=== PATIENT | female | born 1960 | race Caucasian/White ===

== ENCOUNTER 2020-04-29 12:03 | Inpatient (IN) | payer OTHER, SELFPAY ==
[~2020-04-29] VITALS: Ht 154.9 cm; Wt 74.1 kg
--- NOTE | 2020-04-29 12:19 | NUR ---
DR NUNEZ AT BEDSIDE FOR MD FARR.
--- NOTE | 2020-04-29 12:19 | NUR ---
RT AT BEDSIDE FOR BLOOD GAS.
[2020-04-29 12:44] LABS: BASOPHIL % 0.3 % (0-2); PLATELET COUNT 297 x10^3mcL (130-400)
--- NOTE | 2020-04-29 12:49 | NUR ---
PT ERICK FROM HOME, C/O HEADACHE, SOB WITH MINIMAL EXERTION, DRY COUGH, MALAISE, FATIGUED, DIZZINESS, LOSS OF APPETITE, PT STS SHE TOOK TWO TYLENOLS AT 0900 AND HAD RELIEF, PT STS SHE HAS BEEN HAVING THESE SYMPTOMS SINCE APRIL 17, 2020, WENT TO [facility] ON SATURDAY APRIL 25, 2020 WAS TESTED FOR COVID 19 AND WAS TOLD SHE WAS POSITIVE ON APRIL 25, 2020, STS SHE WAS DIAGNOSED WITH PNEUMONIA AND WAS RELEASED ON MONDAY APRIL 27, 2020, SHE WAS SENT HOME WITH OXYGEN CONCENTRATOR WITH AN ORDER FOR 2 L/MIN VIA NC, PT STS SHE HAD OXYGEN ON AT 2 L/MIN VIA NC AND STILL FELT LIKE SHE COULD NOT BREATHE, PT PLACED IN BED 15, AAOX4, SOB NOTED, PLACED ON 4 L/MIN VIA NC, CURRENT 02 AT 96%, RR 30, REPOSITIONED FOR COMFORT, RT AT BEDSIDE, PLACED IN GOWN, IV ACCESS OBTAINED, SAFETY PRECAUTIONS IN PLACE, CALL LIGHT WITHIN REACH, WILL CONTINUE TO MONITOR.
[2020-04-29] MEDS ORDERED: ELIQUIS2.5 MG (13:15)
[2020-04-29] MEDS ORDERED: PROINH (13:15)
[2020-04-29 13:17] LABS: CALCIUM 8.4 mg/dL (8.5-10.1); CARBON DIOXIDE 32.4 mmol/L (21-32); CHLORIDE SERUM 100 mmol/L (98-107); CREATININE SERUM 0.7 mg/dL (0.6-1.0); GFR1 > 60 mL/min; GLUCOSE SERUM 129 mg/dL (74-106); POTASSIUM SERUM 4.2 mmol/L (3.5-5.1); SODIUM SERUM 135 mmol/L (136-145)
[2020-04-29 13:22] LABS: ALKALINE PHOSPHATASE 76 U/L (46-116); ALT/SGPT 84 U/L (14-59); AST/SGOT 41 U/L (15-37); BILIRUBIN TOTAL 0.34 mg/dL (0.20-1.00); LACTIC DEHYDROGENASE (LDH) 337 U/L (100-190); TOTAL PROTEIN, SERUM 7.7 g/dL (6.4-8.2)
[2020-04-29 13:33] LABS: ALBUMIN 2.8 g/dL (3.4-5.0)
[2020-04-29 13:48] LABS: C REACTIVE PROTEIN 23.3 mg/dL (<=0.9)
--- NOTE | 2020-04-29 14:54 | NUR ---
INITIATED ROCEPHIN @ 100ML/HR. PLEASE SEE EMAR.
[2020-04-29 14:55] VITALS: BP 160/79
--- NOTE | 2020-04-29 15:09 | NUR ---
CALLED TO GIVE REPORT TO BRANDEN CORMIER, WILL CALL BACK
[2020-04-29 15:30] LABS: microscopic required? YES; urine erythrocyte NEGATIVE (NEGATIVE)
--- NOTE | 2020-04-29 15:56 | NUR ---
SPOKE WITH RUDI DAUGHTER OF PT RE POC, PER PT OK TO GIVE STATUS ON POC
--- NOTE | 2020-04-29 16:00 | NUR ---
DR HOLDER AT BEDSIDE WITH MSE
[2020-04-29 16:22] VITALS: BP 194/95
[2020-04-29 16:33] VITALS: Ht 154.9 cm; Wt 74.1 kg
--- NOTE | 2020-04-29 16:34 | NUR ---
RECEIVED PT FROM ED VIA [place], CAME IN DUE TO WORSENING SOB, WAS DIAGNOSED W/ COVID ON 04/25/20. PT STATED THAT SHE WAS RECENTLY DISCHARGED FROM [facility] W/ 2LPM/NC OXYGEN. AAOX4. DENIES HEADACHE/DIZZINESS. ABLE TO FOLLOW COMMANDS. SOB NOTED, W/ DRY COUGH, LUNG SOUNDS DIMINISHED ON AUSCULTATION. O2 SAT=93% ON 5LPM/NC. DENIES CHEST PAIN/PRESSURE, SR ON THE MONITOR. DENIES ABDOMINAL DISCOMFORT. VOIDS. C/O GENERALIZED WEAKNESS AND FATIGUE. ABLE TO MOVE ALL EXTREMITIES. IV SITE PATENT AND INTACT. RECEIVED PT FROM ED W/ ZITHROMAX ONGOING. SIDE RAILS UPX2. CALL LIGHT ON REACH. HOB ELEVATED AT 45 DEG. UE=058/94. ENDORSED TO PRIMARY NURSE BRANDEN FOR CONTINUITY OF CARE
--- NOTE | 2020-04-29 18:35 | NUR ---
NO ACUTE CHANGES AT THIS TIME, NO ACUTE RESP DISTRESS OR SOB NOTED/ CURRENT SAT 97%. CURRENT BP AFTER BP MED 165/70, HR 77 DENIES ANY CP OR PRESSURE. TOLERATED 100% DINNER. CALL LIGHT IN REACH. BED IN LOW POSITION. WILL ENDORSE TO INCOMING RN.
[2020-04-29 20:07] VITALS: BP 144/67
--- NOTE | 2020-04-29 20:28 | NUR ---
IN BED NO RESP DISTRESS NOTED, ON 5L N/C SAT 94% , TELE 23 SHOWS NSR . HL PATENT FLUSHING WELL .
--- NOTE | 2020-04-30 05:32 | NUR ---
PT'S PRONNING SAT 98% NO RESP DISTRESS NOTED . TELE NSR .
[2020-04-30 05:33] VITALS: BP 141/69
--- NOTE | 2020-04-30 06:21 | NUR ---
NO CHANGES OF CONDITION NOTED, NO RESP DISTRESS NOTED ,PT'S IN BED PRONING AT THE MOMENT, TELE NSR SAT 97%.
[2020-04-30 07:28] LABS: BASOPHIL % 0.1 % (0-2); PLATELET COUNT 302 x10^3mcL (130-400); RED CELL DISTRIBUTION WIDTH 14.3 % (11.5-14.5)
[2020-04-30 07:47] LABS: CALCIUM 8.7 mg/dL (8.5-10.1); CARBON DIOXIDE 28.2 mmol/L (21-32); CHLORIDE SERUM 102 mmol/L (98-107); CREATININE SERUM 0.6 mg/dL (0.6-1.0); GFR1 > 60 mL/min; GLUCOSE SERUM 175 mg/dL (74-106); POTASSIUM SERUM 4.8 mmol/L (3.5-5.1); SODIUM SERUM 138 mmol/L (136-145)
[2020-04-30 07:51] VITALS: BP 157/79
[2020-04-30 12:21] VITALS: BP 164/83
--- NOTE | 2020-04-30 13:30 | NUR ---
AT 0800 - RECEIVED PATIENT FROM NIGHT NURSE. AWAKE, ALERT AND ORIENTED X 4. MONITOR SHOWING SINUS RHYTHM; RATE 80'S. RESPIRATIONS REGULAR. ON SUPPLIMENTAL O2 VIA NC AT 5L/MIN. USING BEDSIDE COMODE FOR TOILET NEEDS. AT 0900 - SEEN BY DR BELLAMY. CONTINUE WITH TREATMENTS ORDERED. AT 1240 - BLOOD GLUCOSE 194. GIVEN 3 UNITS REGULAR INSULIN PER SLIDING SCALE. AT 1255 - COMMENCED ON ELIQUIS. FIRST DOSE ADMINSITERED PER EMAR. PATIENT EATING LUNCH.
--- NOTE | 2020-04-30 14:09 | NUR ---
NASAL SWAB FOR NOVEL BENITEZ VIRUS COLLECTED AND TAKEN TO LAB
[2020-04-30 17:19] VITALS: BP 157/84
--- NOTE | 2020-04-30 18:36 | NUR ---
VSS. AFEBRILE. REMAINS ON O2 AT 5L. 2 SAT 92-94%. TAKING PO FLUIDS AND FOOD. USING BEDSIDE COMODE FOR TOILET NEEDS. WILL ENDORSE CARE TO NIGHT NURSE.
--- NOTE | 2020-04-30 19:30 | NUR ---
PT RECIEVED FROM DAY NURSE. PT RESTING IN BED AT THIS TIME. DENIES PAIN OR DISCOMFORT. PT A/O X4, CALM AND COOPERATIVE. TELE 23, SR. DENIES CP, NV, DIZZINESS, OR PALPATATIONS. PALPABLE PULSES, NO EDEMA NOTED AT THIS TIME. PT BREATHING E/U ON 5L NC, DENIES SOB. DRY COUGH NOTD AT THIS TIME. ABD SOFT AND ROUND, DENIES PAIN TO PALPATION. PT AMBULATORY AT BASELINE. IV TO RH, CDI. BED AT LOWEST POSITION. CALL LIGHT WITHIN REACH. WILL CONTINUE TO MONITOR.
[2020-04-30 21:43] VITALS: BP 148/83
[2020-05-01 06:20] VITALS: BP 147/64
--- NOTE | 2020-05-01 06:44 | NUR ---
PT RESTING IN BED AT THIS TIME. DENIES PAIN OR DISCOMFORT. PT BREATHING E/U ON 5L NC. DENIES SOB AT THIS TIME. NO S/S OF ACUTE DISTRESS AT THIS TIME. ALL NEEDS AND CONCERNS ADDRESSED THIS SHIFT. BED AT LOWEST POSITION. CALL LIGHT WITHIN REACH. WILL ENDORSE TO DAY NURSE.
[2020-05-01 07:05] LABS: BASOPHIL % 0.1 % (0-2); PLATELET COUNT 378 x10^3mcL (130-400)
[2020-05-01 07:20] LABS: ALKALINE PHOSPHATASE 67 U/L (46-116); ALT/SGPT 96 U/L (14-59); AST/SGOT 40 U/L (15-37); BILIRUBIN TOTAL 0.3 mg/dL (0.20-1.00); CALCIUM 8.8 mg/dL (8.5-10.1); CARBON DIOXIDE 27.9 mmol/L (21-32); CHLORIDE SERUM 103 mmol/L (98-107); CREATININE SERUM 0.6 mg/dL (0.6-1.0); GFR1 > 60 mL/min; GLUCOSE SERUM 147 mg/dL (74-106); POTASSIUM SERUM 4.2 mmol/L (3.5-5.1); SODIUM SERUM 138 mmol/L (136-145); TOTAL PROTEIN, SERUM 7.3 g/dL (6.4-8.2)
[2020-05-01 07:22] LABS: ALBUMIN 2.7 g/dL (3.4-5.0)
--- NOTE | 2020-05-01 07:30 | NUR ---
RECEIVED PT IN BED A/A/OX4 DENIES PETERSON. RESP EVEN AND UNLABORED WITH DIMINISHED BS THROUGH OUT. NOTED WITH FREQUENT CONGESTED COUGH. DENIES ANY SOB/CP/PRESSURE AT THIS TIME. NO EDEMA NOTED WITH IV TO RH. ABD SOFT, NONTENDER WITH ACTIVE BS X4. VOIDING FREELY, UP TO BSC. REPORTS POOR ACTIVITY TOLERANCE D/T FATIGUE AND SOB. DROPLET PRECAUTIONS MAINTAINED FOR HX +CVD, PENDING INPATIENT RESULT. CALL LIGHT IN REACH NEEDS ATTENDED TO.
[2020-05-01 09:05] VITALS: BP 143/64
--- NOTE | 2020-05-01 11:20 | NUR ---
PT RESTING AT THIS TIME. DENIES ANY DISCOMFORT. CALL LIGHT IN REACH NEEDS ATTENDED TO.
[2020-05-01 12:57] VITALS: BP 148/70
--- NOTE | 2020-05-01 16:05 | NUR ---
PT ASSITED WITH AMBULATION WITH IN THE ROOM. CONNECTED O2 EXTENSION TUBING AND MAINTAINED O2 AT 3L/MIN. PT AMBULATED UP AND DOWN THE ROOM WITH O2 SAT 92-94%. PT HAD MILD DIZZINESS REPORTED. OVERALL TOLERATED ACTIVITY WELL. CALL [facility] IN REACH NEEDS ATTENDED TO.
[2020-05-01 16:31] VITALS: BP 111/61; BP 158/81
--- NOTE | 2020-05-01 17:11 | NUR ---
P.T. NOTES P.T. EVAL COMPLETED; REFER TO EVAL FOR DETAILS; AMBULATORY WITHOUT ASST DEVICE; ENDORSED TO NURSING; O2 SAT ROOM AIR=86%, O2 N/C 2L=94%.
--- NOTE | 2020-05-01 18:40 | NUR ---
PT C/O COUGH, MEDICATED WITH PRN ROBITUSSIN PER EMAR. PT REMAINS ON 3L/MIN VIA NC, TOLERATED WELL. MADE AWARE OF ORDER TO INCREASE HOME O2 TO 3L WHICH SHE IS CURRENTLY ON SATING 94%, WITH D/C PLAN PER DR. JAYCE TRUJILLO IN 2-3 DAYS. PT VERBALIZED FEELING BETTER AND WAS ABLE TO TOLERATE AMBULATION. CALL LIGHT IN REACH NEEDS ATTENDED TO.
--- NOTE | 2020-05-01 20:10 | NUR ---
PT RECIEVED AAO REG RESP NO SOB ON 2L N/C SAT 95%,HOB,ABDO IS SOFT WITH ACTIVE BOWEL SOUNDS,PT ON TELE MONITOR ANSD IN NSR NO ECTOPY OR CHEST PAIN AT THIS TIME,KEPT CLEAN AN DRY TO TOUCH,PT USES BSC,CALL LIGHT EASY REACHED AND WILL CONTINUE TO MONITOR.
[2020-05-01 20:48] VITALS: BP 147/68
[2020-05-02 05:51] VITALS: BP 149/68
--- NOTE | 2020-05-02 06:29 | NUR ---
PT HAD A RESTING NIGHT NO CHANGE AT THIS TIME,WILL CONTINUE TO MONITOR.
[2020-05-02 06:54] LABS: CALCIUM 8.3 mg/dL (8.5-10.1); CARBON DIOXIDE 31.6 mmol/L (21-32); CHLORIDE SERUM 102 mmol/L (98-107); CREATININE SERUM 0.8 mg/dL (0.6-1.0); GFR1 > 60 mL/min; GLUCOSE SERUM 142 mg/dL (74-106); POTASSIUM SERUM 4.4 mmol/L (3.5-5.1); SODIUM SERUM 137 mmol/L (136-145)
--- NOTE | 2020-05-02 07:08 | NUR ---
RECEIVED PT FROM MONORAIL CHARGER OPERATOR RN. AOX4 ABLE TO MAKE NEEDS KNOWN.DENIES PETERSON/DIZZINESS. TELE 23 NSR. DIMINISHED LUNG SOUNDS, ON 2 L NC, DENIES SOB/COUGH, RESP E/U. ABDOMEN SOFT/ROUND, DENIES N/V/D, BOWEL SOUNDS ACTIVE. AMBULATORY, BSC AT BEDSIDE. SKIN INTACT. NO C/O PAIN. IV TO R H PATENT. CALL LIGHT IN REACH, WILL CONTINUE TO MONITOR.
[2020-05-02 07:35] LABS: BASOPHIL % 0.3 % (0-2); PLATELET COUNT 372 x10^3mcL (130-400); RED CELL DISTRIBUTION WIDTH 13.6 % (11.5-14.5)
[2020-05-02 08:28] VITALS: BP 133/76
[2020-05-02] MEDS ORDERED: ROBDML PO (10:08)
[2020-05-02] MEDS ORDERED: ZES20 PO (10:08)
[2020-05-02] MEDS ORDERED: TYL325 PO (10:08)
[2020-05-02 10:34] VITALS: BP 133/77
[2020-05-02 13:10] VITALS: BP 155/76
[2020-05-02 16:12] VITALS: BP 147/73
--- NOTE | 2020-05-02 17:59 | NUR ---
PER DAUGHTER RUDI, HOME 02 ARRIVED, WILL INFORM PT'S TO BRING WITH HIM.
--- NOTE | 2020-05-02 19:24 | NUR ---
PT RECEIVED DC INSTRUCTIONS. PT AWARE OF NEW MEDICATION TO TAKE AT HOME. AWARE OF SIGNS AND SYMPTOMS TO WATCH OUT FOR AND TO RETURN TO ED IF ANY SYMPTOMS WORSEN. PT EDUCATED ON MAINTAINING QUARANTINED AT HOME AND TO AVOID CONTACT WITH OTHER PPL AND TO WEAR A MASK. IV CATHETER INTACT. ALL QUESTIONS AND CONCERNS ANSWERED, NO COMPLICAITONS NOTED DURING DISCHARGE.
== END 2020-05-02 18:56 | disposition home or self-care (01) | DRG 177 ==
LOC: ED 12:03 → DU 14:13
PROVIDERS: Internal Medicine; Specialist; ADMIT Internal Medicine Pulmonary Disease; ATTEND Internal Medicine Pulmonary Disease
DX: U07.1 COVID-19 (principal); J12.89 Other viral pneumonia; J96.01 Acute respiratory failure with hypoxia; I10 Essential (primary) hypertension; E11.9 Type 2 diabetes mellitus without complications; Z98.51 Tubal ligation status; Z79.899 Other long term (current) drug therapy; Z91.041 Radiographic dye allergy status; Z79.4 Long term (current) use of insulin
CPT/HCPCS: 36600; 82962; 83880; 87804; G0378; J0456; J0696; J1100; J1815; J2543; J3535; J7030; J7050; Q0092; U0003-CS